=== PATIENT | male | born 1995 | race African-American/Black ===

== ENCOUNTER 2018-04-23 21:31 | Emergency (ER) | payer OTHER ==
[~2018-04-23] VITALS: Ht 198.1 cm; Wt 68.0 kg
[~2018-04-23 21:31] MED LIST: NKM
[2018-04-23 21:34] VITALS: BP 127/85
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
[2018-04-23] MEDS ORDERED: ROBAXIN-750750 MG PO (22:31)
[2018-04-23] MEDS ORDERED: IBUPROFEN600 MG ORAL (22:31)
[2018-04-23 22:41] VITALS: BP 124/82
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
== END 2018-04-23 22:41 | disposition home or self-care (01) ==
LOC: EDBD 21:31 → EMR 22:00
DX: S70.02XA Contusion of left hip, initial encounter (principal); S70.212A Abrasion, left hip, initial encounter; R10.2 Pelvic and perineal pain; V43.52XA Car driver injured in collision with other type car in traffic accident, initial encounter; Y92.488 Other paved roadways as the place of occurrence of the external cause
CPT/HCPCS: 72170; 99283